=== PATIENT | female | born 1935 | race Caucasian/White ===

== ENCOUNTER → 2016-10-23 | Outpatient (REF) | payer MEDICARE, MEDICAID ==
[~2016-10-23] MED LIST: /MOM400 PO; /QUET25TA PO; ACET50TAOT PO; CALCTAB60 PO; CELLOPD OD; CEPACOL PO; COMT200T PO; DOCU10ELUD PO; FLEEENE4 PR; FLUD1TA PO; IMOD2TAB14 PO; LEVO88TA2 PO; MAALSUS PO; PREM0.45 PO; PRIL40CA PO; SINE25TA PO; VIBR100C PO; VITA200028 PO; [UNRECOGNIZED DRUG - CODE] PO; [UNRECOGNIZED DRUG - CODE] PO; [UNRECOGNIZED DRUG - OTHER] PO
== END ==
PROVIDERS: ATTEND Internal Medicine
DX: E03.9 Hypothyroidism, unspecified (principal)

== ENCOUNTER → 2016-11-09 | Outpatient (REF) | payer MEDICARE, MEDICAID ==
[2016-11-09 13:39] LABS: MEAN CORPUSCULAR HEMOGLOBIN 30.6 pg (27.0-33.0); MEAN CORPUSCULAR HGB CONC 32.1 g/dl (32.0-36.5); MEAN CORPUSCULAR VOLUME 95.6 fl (80.0-96.0); RED CELL DISTRIBUTION WIDTH 14.8 % (11.5-14.5); WHITE BLOOD COUNT 5.7 K/mm3 (4.0-10.0)
[2016-11-09 14:33] LABS: ANION GAP 5 MEQ/L (8-16); BLOOD UREA NITROGEN 21 MG/DL (7-18); CARBON DIOXIDE LEVEL 31 MEQ/L (21-32); CHLORIDE LEVEL 111 MEQ/L (98-107); CREATININE FOR GFR 0.74 MG/DL (0.55-1.02); GLOMERULAR FILTRATION RATE > 60.0 (>32); GLUCOSE, FASTING 95 MG/DL (83-110); SODIUM LEVEL 147 MEQ/L (136-145)
== END ==
PROVIDERS: ATTEND Internal Medicine
DX: E86.0 Dehydration (principal)